=== PATIENT | male | born 1990 | race Two or more races ===

== ENCOUNTER 2019-07-19 16:16 | Emergency (ER) | payer BC ==
[~2019-07-19] VITALS: Ht 182.9 cm; Wt 93.0 kg
[2019-07-19 16:34] VITALS: BP 130/80
--- NOTE | 2019-07-19 16:39 | Emergency Room Report ---
History of Present Illness General Chief Complaint: Flu Like Symptoms Source: Patient Present Illness HPI Patient is a 29-year-old male who presents after increased cough for approximately 3 days. He reports having increased generalized body aches as well as increased weakness. He reports having recent sick contact with someone who traveled from the [place] but denies any recent travel himself. He denies any shortness of breath. Reports having intermittent sputum production. Denies any vomiting. Denies any diarrhea. Denies headache. COVID-19 risk:Travel to affect: No Has patient experienced leary: No Coronavirus symptoms experienc: Cough, Flu-Like Symptoms Allergies: Coded Allergies: No Known Allergies (Unverified , 07/19/19) Patient History Past Medical History: see triage record Reviewed Nursing Documentation: PMH: Agreed; PSxH: Agreed Nursing Documentation-PM Past Medical History: No Stated History Hx Cardiac Problems: No Review of Systems All Other Systems: negative except mentioned in HPI Physical Exam Vital Signs Date Time Temp Pulse Resp B/P (MAP) Pulse Ox O2 Delivery O2 Flow Rate FiO2 07/19/19 16:29 99.0 97 18 138/96 (110) 100 Room Air General Appearance: well appearing, no apparent distress, alert, GCS 15 Head: normocephalic, atraumatic ENT: hearing grossly normal, normal voice Neck: full range of motion, supple Respiratory: lungs clear, normal breath sounds, no respiratory distress, speaking full sentences Cardiovascular #1: normal inspection, normal peripheral pulses, regular rate, rhythm Gastrointestinal: normal inspection Musculoskeletal: normal inspection, no calf tenderness Neurologic: alert, motor strength/tone normal, commutator v ring assembler III-XII nml as tested, oriented x3, normal gait Psychiatric: normal inspection, mood/affect normal Skin: no rash Medical Decision Making Diagnostic Impression: Primary Impression: Viral respiratory infection ER Course Patient presented for cough and congestion. Differential diagnosis include was not limited to pneumonia, bronchitis, viral upper respiratory infection among others. Differential diagnosis include was not limited to viral respiratory infection, upper respiratory infection, bronchitis, pneumonia among others. Patient has a benign exam and does not appear to require any imaging or laboratory testing at this time. Patient is afebrile with no known sick contacts or recent travel. Does not appear to be in any respiratory distress. Oxygen saturation is normal and patient is currently afebrile. Is not taking antipyretics. Patient was noted to have symptoms consistent with a viral respiratory infection. Patient was advised to self quarantine. Patient's influenza study was noted to be positive influenza A. Was advised to return if began having fever increased difficulty breathing or other concerns. The patient is advised to follow up with primary care doctor for recheck. Patient is advised to return if any worsening condition or if any changes in status that are concerning. Last Vital Signs Date Time Temp Pulse Resp B/P (MAP) Pulse Ox O2 Delivery O2 Flow Rate FiO2 07/19/19 16:29 99.0 97 18 138/96 (110) 100 Room Air Status: improved Disposition: HOME, SELF-CARE Condition: Stable Scripts Guaifenesin/Dextromethorphan* (Guaifenesin Dm Syrup*) 5 Ml Syrup 5 ML ORAL Q8H PRN for FOR COUGH, #118 ML 0 Refills Prov: Emiliano Padron MD 07/19/19 Ibuprofen* (MOTRIN*) 600 Mg Tablet 600 MG ORAL Q8H PRN for For Pain, #20 TAB 0 Refills Prov: Emiliano Padron MD 07/19/19 Emiliano Padron MD Jul 19, 2019 16:39
--- NOTE | 2019-07-19 16:54 | NUR ---
ED Nurse Note: pt ambulated into ED from home c/o sneezing, coughing, feeling fatigue since 07/16/19. pt consulted a doctor online and that doctor, Dr. Shetty, advised him to see MD for further evaluation. pt stated he got into a contact with a person recently traveled in [place]. patient denies any fever. VSS, afebrile on triage. Placed on trauma room.
--- NOTE | 2019-07-19 17:07 | NUR ---
ED Nurse Note: flu swab collectedand sent to lab. CXR done at bedside. pt is in bed resting. no acute distress is noted.
[2019-07-19] MEDS ORDERED: IBUPROFEN600 MG ORAL (17:26)
[2019-07-19] MEDS ORDERED: GUAIFENESIN DM118 M1 ORAL (17:26)
[2019-07-19 17:30] VITALS: BP 138/87
--- NOTE | 2019-07-19 17:30 | NUR ---
ER DISCHARGE NOTE: Patient is cleared to be discharged per ERMD, pt is aox4, on room air, with stable vital signs. pt was given dc and prescription instructions, pt was able to verbalize understanding, pt id band removed without complications. pt is able to ambulate with steady gait. pt took all belongings.
--- NOTE | 2019-07-19 18:01 | Diagnostic Imaging Report ---
Indication: Dyspnea Comparison: None A single view chest radiograph was obtained. Findings: Cardiomediastinal appearance is within normal limits for age. The lungs are clear. Pulmonary vascularity is appropriate. The diaphragmatic contour is smooth and costophrenic angles are sharp. No pleural effusions are identified. The bones are unremarkable. Impression: No acute findings
== END 2019-07-19 17:30 | disposition home or self-care (01) ==
LOC: EMR 17:30
DX: J06.9 Acute upper respiratory infection, unspecified (principal); B97.89 Other viral agents as the cause of diseases classified elsewhere
CPT/HCPCS: 71045; 86710; 99283